=== PATIENT | female | born 1925 | race African-American/Black ===

== ENCOUNTER 2016-06-02 09:22 | Inpatient (IN) | payer OTHER, MEDICAID ==
[~2016-06-02] VITALS: Ht 121.9 cm; Wt 74.4 kg
[2016-06-02 10:19] LABS: Basophils # (auto) 0 uL; Basophils % (auto) 0.2 % (0.0-2.0); DEFINITIVE VIEW TRANSMISSION; Eosinophils # (auto) 0 uL; Hematocrit 48.2 % (36.0-46.0); Hemoglobin 15.1 g/dL (12.2-16.2); Lymphocytes # (auto) 0.4 uL; Mean Corpuscular Hemoglobin 25.2 pg (28.0-32.0); Mean Corpuscular Hgb Conc. 31.4 g/dL (32.0-36.0); Mean Corpuscular Volume 80.2 fL (80.0-100.0); Mean Platelet Volume 8.5 fL (7.4-10.4); Monocytes # (auto) 0.3 uL; Monocytes % (auto) 7.9 % (0.0-12.0); Neutrophils # (auto) 2.8 uL; Neutrophils % (auto) 80.9 % (37.0-80.0); Platelet Count (auto) 192 10^3/uL (140-450); Red Cell Distribution Width 14.4 % (11.6-16.0); White Blood Cell 3.5 10^3/uL (4.4-10.8)
[2016-06-02 10:34] LABS: Partial Thromboplastin Time 26.8 sec (22.64-33.71)
[2016-06-02 10:44] LABS: Albumin 3.9 g/dL (3.4-5.0); BUN/Creatinine Ratio 15.9; Bilirubin, Total 0.5 mg/dL (0.2-1.0); Calcium 9.1 mg/dL (8.5-10.1); Potassium 4.3 mmol/L (3.5-5.1); Total Protein 8.2 g/dL (6.4-8.2)
[2016-06-02 10:51] LABS: INR 1.22 (0.9-1.15); Prothrombin Time 12.6 sec (9.37-12.3)
[2016-06-02 12:02] LABS: Urine Bilirubin Negative (Negative); Urine Blood Negative /uL (Negative); Urine Color Yellow (Yellow); Urine Glucose Normal (Normal); Urine Nitrite Negative (Negative); Urine RBC <1 /hpf (0 - 4); Urine Urobilinogen Normal (Negative)
[2016-06-02 12:03] LABS: Urine Ketone 1+ (Negative)
[2016-06-02] MEDS ORDERED: DEXTROSE (50%) 50ML SYRG IV PRN (13:45)
[2016-06-02] MEDS ORDERED: cefTRIAXone 1GM/50ML D5W 50 ML IV ONE (13:45)
[2016-06-02] MEDS ORDERED: NITROGLYCERIN 0.4 MG SL TAB SL PRN (14:00)
[2016-06-02] MEDS ORDERED: DOCUSATE SOD 100 MG CAP PO PRN (14:00)
[2016-06-02] MEDS ORDERED: MORPHINE SULF INJ 2 MG/ML SYRINGE 1ML IV PRN ×2 (14:00)
[2016-06-02] MEDS ORDERED: TEMAZEPAM 15 MG CAP PO PRN (14:00)
[2016-06-02] MEDS ORDERED: ACETAMINOPHEN 325 MG TAB PO PRN (14:00)
[2016-06-02] MEDS ORDERED: MECLIZINE HCL 25 MG TAB PO PRN (14:00)
[2016-06-02] MEDS ORDERED: ONDANSETRON HCL 4 MG/2 ML VIAL IV PRN (14:00)
[2016-06-02] MEDS ORDERED: HYDROcodone-ACET 5/325MG TAB PO PRN (14:00)
[2016-06-02] MEDS ORDERED: HCTZ 25 MG TAB PO ONE (14:30)
[2016-06-02] MEDS ORDERED: LOSARTAN POTASSIUM 50 MG TAB PO ONE (14:30)
[2016-06-02] MEDS: SODIUM CHLORIDE 0.9% 1,000 ML IV SCH (14:48)
[2016-06-02] MEDS: FAMOTIDINE 20 MG TAB PO SCH ×2 (14:49→22:38)
[2016-06-02] MEDS: ENOXAPARIN SOD 40 MG/0.4 ML SYRINGE SC SCH (14:49)
[2016-06-02 14:51] LABS: Lactic Acid 2.3 mmol/L (0.4-2.0)
[2016-06-02 14:54] LABS: REFLEX LACTIC ACID YES OR NO YES
[2016-06-02 14:56] LABS: B-Type Natriuretic Peptide 37.46 pg/mL (0-100)
[2016-06-02 14:57] LABS: Temperature: 21.9 C (20.0-25.0)
[2016-06-02 16:53] LABS: Lactic Acid 2.2 mmol/L (0.4-2.0)
[2016-06-02 16:56] LABS: REFLEX LACTIC ACID YES OR NO NO
[2016-06-02] MEDS: ACCU-CHEK COMFORT CURVE STRIP VI SCH ×2 (17:00→22:38)
[2016-06-02] MEDS: InsuLIN REG 1unit/0.01ml Soln (100units/ml) SC SCH ×2 (17:53→22:48)
[2016-06-02] MEDS: ALBUTEROL SULF 2.5 MG/0.5ML(0.5%) NEB SOLN NEB SCH (18:00)
[2016-06-02] MEDS ORDERED: traZODone HCL 50 MG TAB PO SCH (22:00)
[2016-06-02 23:03] LABS: Temperature: 22.3 C (20.0-25.0)
[2016-06-03] MEDS: ALBUTEROL SULF 2.5 MG/0.5ML(0.5%) NEB SOLN NEB SCH ×3 (00:50→14:28)
[2016-06-03] MEDS ORDERED: ALBUMIN 5% 250 ML IV ONE ×2 (05:24→05:30)
[2016-06-03 05:44] LABS: DEFINITIVE VIEW TRANSMISSION; Mean Platelet Volume 8.4 fL (7.4-10.4); SUSPECT VIEW TRANSMISSION
[2016-06-03 05:47] LABS: Hematocrit 40.2 % (36.0-46.0); Hemoglobin 12.7 g/dL (12.2-16.2); Mean Corpuscular Hemoglobin 25.5 pg (28.0-32.0); Mean Corpuscular Hgb Conc. 31.6 g/dL (32.0-36.0); Mean Corpuscular Volume 80.9 fL (80.0-100.0); Platelet Count (auto) 145 10^3/uL (140-450); Red Cell Distribution Width 12.9 % (11.6-16.0)
[2016-06-03 05:50] LABS: Metamyelocytes % 0; Myelocytes % 0; Promyelocytes % 0; Reactive Lymphocytes 0
[2016-06-03 06:47] LABS: Albumin 2.8 g/dL (3.4-5.0); BUN/Creatinine Ratio 20.9; Calcium 7.2 mg/dL (8.5-10.1)
[2016-06-03 06:52] LABS: Hypochromia Slight; Platelet Estimate Adequate
[2016-06-03 06:59] LABS: Bilirubin, Total 0.3 mg/dL (0.2-1.0)
[2016-06-03] MEDS: ACCU-CHEK COMFORT CURVE STRIP VI SCH (07:38)
[2016-06-03] MEDS: InsuLIN REG 1unit/0.01ml Soln (100units/ml) SC SCH (07:38)
[2016-06-03] MEDS: SODIUM CHLORIDE 0.9% 1,000 ML IV SCH (07:50)
[2016-06-03] MEDS: FAMOTIDINE 20 MG TAB PO SCH (07:50)
[2016-06-03] MEDS: ENOXAPARIN SOD 40 MG/0.4 ML SYRINGE SC SCH (07:51)
[2016-06-03] MEDS ORDERED: cefTRIAXone 1GM/50ML D5W 50 ML IV SCH (09:00)
[2016-06-03] MEDS ORDERED: LOSARTAN POTASSIUM 50 MG TAB PO SCH (10:00)
[2016-06-03] MEDS ORDERED: HCTZ 25 MG TAB PO SCH (10:00)
[2016-06-03] MEDS ORDERED: MULTIPLE VITAMIN TAB PO SCH (10:00)
[2016-06-03 11:10] VITALS: BP 125/58
[2016-06-03 16:18] VITALS: BP 125/58
[2016-06-03 17:48] VITALS: BP 107/55
[2016-06-03 18:31] VITALS: BP 107/55
[2016-06-04] MEDS ORDERED: ALENDRONATE SODIUM 10 MG TAB PO SCH (06:00)
== END 2016-06-03 20:10 | disposition home or self-care (01) | DRG 64 ==
LOC: EDUNIT# 09:22 → ER 09:25 → TELE 09:26 → TELE-WESTW 06-03 11:10
PROVIDERS: ADMIT Internal Medicine; ATTEND Family Medicine
DX: I63.9 Cerebral infarction, unspecified (principal); G93.49 Other encephalopathy; N39.0 Urinary tract infection, site not specified; D68.9 Coagulation defect, unspecified; E87.0 Hyperosmolality and hypernatremia; G81.91 Hemiplegia, unspecified affecting right dominant side; R42 Dizziness and giddiness; S09.90XA Unspecified injury of head, initial encounter; D72.819 Decreased white blood cell count, unspecified; W19.XXXA Unspecified fall, initial encounter; D63.8 Anemia in other chronic diseases classified elsewhere; R47.81 Slurred speech; E86.0 Dehydration; N18.3 Chronic kidney disease, stage 3 (moderate); E11.65 Type 2 diabetes mellitus with hyperglycemia; E11.22 Type 2 diabetes mellitus with diabetic chronic kidney disease; I12.9 Hypertensive chronic kidney disease with stage 1 through stage 4 chronic kidney disease, or unspecified chronic kidney disease; E11.21 Type 2 diabetes mellitus with diabetic nephropathy; R19.7 Diarrhea, unspecified; Y93.89 Activity, other specified; Y92.009 Unspecified place in unspecified non-institutional (private) residence as the place of occurrence of the external cause; Y99.8 Other external cause status; Z90.49 Acquired absence of other specified parts of digestive tract; Z98.890 Other specified postprocedural states
CPT/HCPCS: 36415; 70450; 71010; 74176; 80053; 81001; 82607; 82746; 82962; 83036; 83605; 83880; 84439; 84443; 84484; 85007; 85025; 85027; 85610; 85730; 87040; 87086; 93005; 93886; 94640; 95819; 96372; 96374; 96375; 96376; 97001; G0434; J0696